=== PATIENT | male | born 1960 | race Caucasian/White ===

== ENCOUNTER 2017-02-10 16:45 | Inpatient (IN) | payer OTHER ==
[~2017-02-10] VITALS: Ht 200.7 cm; Wt 141.9 kg
[2017-02-10] MEDS ORDERED: SODIUM CHLORIDE 0.9% 1,000 ML IVB ONE (17:17)
[2017-02-10 17:45] LABS: Basophils # (auto) 0.1 uL; Basophils % (auto) 1.2 % (0.0-2.0); Eosinophils # (auto) 0.2 uL; Eosinophils % (auto) 1.7 % (0.0-7.0); Hematocrit 46.6 % (41.0-53.0); Hemoglobin 16.5 g/dL (13.5-17.5); Lymphocytes # (auto) 2.1 uL; Lymphocytes % (auto) 21.9 % (10.0-50.0); Mean Corpuscular Hemoglobin 30.9 pg (28.0-32.0); Mean Corpuscular Hgb Conc. 35.3 g/dL (32.0-36.0); Mean Corpuscular Volume 87.6 fL (80.0-100.0); Mean Platelet Volume 9.4 fL (6.9-10.8); Monocytes % (auto) 10.4 % (0.0-12.0); Neutrophils # (auto) 6.2 uL; Neutrophils % (auto) 64.8 % (37.0-80.0); Nucleated Red Blood Cells % 0.1 %; Platelet Count (auto) 210 10^3/uL (140-450); Red Cell Distribution Width 13.9 % (11.8-14.3); White Blood Cell 9.6 10^3/uL (4.4-10.8)
[2017-02-10 17:47] LABS: Albumin 3.6 g/dL (3.4-5.0); BUN/Creatinine Ratio 14.4; Calcium 8.9 mg/dL (8.5-10.1); Magnesium 2.6 mg/dL (1.6-2.6); Potassium 3.7 mmol/L (3.5-5.1)
[2017-02-10 17:52] LABS: Bilirubin, Total 0.3 mg/dL (0.2-1.0); Total Protein 6.8 g/dL (6.4-8.2)
[2017-02-10 17:59] LABS: INR 0.98 (0.9-1.15); Partial Thromboplastin Time 30.6 sec (22.64-33.71); Prothrombin Time 10.7 sec (9.37-12.3)
[2017-02-10 18:17] LABS: B-Type Natriuretic Peptide 188.95 pg/mL (0-100)
[2017-02-10 19:08] LABS: Temperature: 22.3 C (20.0-25.0)
[2017-02-10] MEDS ORDERED: ASPirin-EC 81 mg tab PO ONE (19:45)
[2017-02-10 20:14] LABS: Urine RBC None Seen /hpf (0 - 3)
[2017-02-10] MEDS ORDERED: DILTIAZEM HCL 25 MG/5 ML VIAL IV ONE (20:15)
[2017-02-10] MEDS ORDERED: SODIUM CHLORIDE 0.9% 1,000 ML IV ONE (20:15)
[2017-02-10] MEDS ORDERED: MORPHINE SULF INJ 2 MG/ML SYRINGE 1ML IV PRN (20:30)
[2017-02-10] MEDS ORDERED: NITROGLYCERIN 0.4 MG SL TAB SL PRN (20:30)
[2017-02-10] MEDS ORDERED: METOPROLOL TARTRATE 50 MG TAB PO ONE (20:30)
[2017-02-10 21:08] LABS: Urine Bilirubin Negative (Negative); Urine Blood Negative /uL (Negative); Urine Color Yellow (Yellow); Urine Glucose Normal (Normal); Urine Ketone Negative (Negative); Urine Mucus FEW (None Seen); Urine Nitrite Negative (Negative); Urine Urobilinogen Normal (Negative); Urine pH 5.5 (5.0-8.0)
[2017-02-10 21:45] VITALS: BP 109/65
[2017-02-10] MEDS ORDERED: METOPROLOL TARTRATE 50 MG TAB PO SCH (22:00)
[2017-02-10] MEDS: ATORVASTATIN 20 MG TAB PO SCH (22:20)
[2017-02-10] MEDS: ENOXAPARIN SOD 150 MG/1 ML SYRINGE SC SCH (22:20)
[2017-02-10] MEDS ORDERED: ASP81EC PO (23:30)
[2017-02-10] MEDS ORDERED: LISI10TA6 PO (23:30)
[2017-02-11 05:00] VITALS: BP 118/81
[2017-02-11 06:08] LABS: Basophils # (auto) 0.1 uL; Basophils % (auto) 0.8 % (0.0-2.0); CONDITION Y; Eosinophils # (auto) 0.1 uL; Eosinophils % (auto) 1.9 % (0.0-7.0); Hematocrit 43.3 % (41.0-53.0); Hemoglobin 14.7 g/dL (13.5-17.5); Lymphocytes # (auto) 2.3 uL; Lymphocytes % (auto) 31.6 % (10.0-50.0); Mean Corpuscular Hemoglobin 30.1 pg (28.0-32.0); Mean Corpuscular Hgb Conc. 33.9 g/dL (32.0-36.0); Mean Corpuscular Volume 88.8 fL (80.0-100.0); Mean Platelet Volume 9.5 fL (6.9-10.8); Monocytes # (auto) 0.7 uL; Monocytes % (auto) 9.3 % (0.0-12.0); Neutrophils % (auto) 56.4 % (37.0-80.0); Platelet Count (auto) 221 10^3/uL (140-450); Red Cell Distribution Width 14.2 % (11.8-14.3); White Blood Cell 7.2 10^3/uL (4.4-10.8)
[2017-02-11 06:30] LABS: BUN/Creatinine Ratio 13.8; Calcium 8.3 mg/dL (8.5-10.1)
[2017-02-11] MEDS: ENOXAPARIN SOD 150 MG/1 ML SYRINGE SC SCH (09:19)
[2017-02-11] MEDS: ASPirin 81 mg TAB PO SCH (10:00)
[2017-02-11] MEDS: SOTALOL HCL 80 MG TAB PO SCH ×2 (10:00→22:39)
[2017-02-11 10:41] VITALS: BP 136/90
[2017-02-11 12:19] VITALS: BP 139/82
[2017-02-11 17:00] VITALS: BP 123/73
[2017-02-11 21:30] VITALS: BP 133/71
[2017-02-11] MEDS: APIXABAN 5 MG TAB PO SCH (22:39)
[2017-02-11] MEDS: ATORVASTATIN 20 MG TAB PO SCH (22:39)
[2017-02-12 05:03] VITALS: BP 117/88
[2017-02-12 09:00] VITALS: BP 138/85
[2017-02-12] MEDS: SOTALOL HCL 80 MG TAB PO SCH ×2 (09:22→22:00)
[2017-02-12] MEDS: APIXABAN 5 MG TAB PO SCH ×2 (09:22→22:00)
[2017-02-12] MEDS: ASPirin 81 mg TAB PO SCH (09:22)
[2017-02-12 13:00] VITALS: BP_SYST 117; BP_SYST 147; BP_DIAS 70; BP_DIAS 95
[2017-02-12] MEDS ORDERED: fentaNYL CITRATE 100 MCG/2 ML VL IV ONE (13:15)
[2017-02-12] MEDS ORDERED: LIDOCAINE VISCOUS 2% 15ML UD PO ONE (13:15)
[2017-02-12] MEDS ORDERED: MIDAZOLAM HCL 1MG/1ML-2 ML VIAL ONE (13:15)
[2017-02-12] MEDS ORDERED: MIDAZOLAM HCL 5 MG/ML-1ML VIAL IV ONE (13:15)
[2017-02-12] MEDS ORDERED: BENZOCAINE (DENTAL) 20 % SPRAY 60ML MT ONE ×2 (13:33→13:45)
[2017-02-12 17:00] VITALS: BP 123/86
[2017-02-12] MEDS: ATORVASTATIN 20 MG TAB PO SCH (21:59)
[2017-02-12 22:00] VITALS: BP 145/93
[2017-02-13 05:03] VITALS: BP 117/80
[2017-02-13] MEDS ORDERED: ADENOSINE 119 MG in GIVE UN-DILUTED 0 ML IV ONE (08:30)
[2017-02-13 09:26] VITALS: BP 134/83
[2017-02-13] MEDS: APIXABAN 5 MG TAB PO SCH (11:44)
[2017-02-13] MEDS: ASPirin 81 mg TAB PO SCH (11:45)
[2017-02-13] MEDS: SOTALOL HCL 80 MG TAB PO SCH (11:45)
[2017-02-13 12:45] VITALS: BP 134/83
[2017-02-13 12:50] VITALS: BP 125/84
[2017-02-13 16:30] VITALS: BP 120/79
== END 2017-02-13 20:50 | disposition home or self-care (01) | DRG 310 ==
LOC: ER 16:45 → TELE 16:46 → TELE-CENTR 21:36
PROVIDERS: ADMIT Internal Medicine; ATTEND Internal Medicine
PROC: B24BZZ4 Ultrasonography of Heart with Aorta, Transesophageal (ICD-10-PCS; principal; 2017-02-12)
PROC: 5A2204Z Restoration of Cardiac Rhythm, Single (ICD-10-PCS; 2017-02-12)
DX: I48.0 Paroxysmal atrial fibrillation (principal); I11.9 Hypertensive heart disease without heart failure; E66.9 Obesity, unspecified; E78.5 Hyperlipidemia, unspecified; Z82.49 Family history of ischemic heart disease and other diseases of the circulatory system; Z68.35 Body mass index [BMI] 35.0-35.9, adult; Z88.8 Allergy status to other drugs, medicaments and biological substances
CPT/HCPCS: 36415; 71010; 80048; 80053; 81001; 83735; 83880; 84443; 84484; 85025; 85379; 85610; 85730; 93005; 93017; 93306; 93312; 94761; 96360; 96361; 99152; 99153; J0153; J2250

== ENCOUNTER 2024-03-15 05:07 | Inpatient (IN) | payer OTHER ==
[~2024-03-15] VITALS: Ht 200.7 cm; Wt 159.0 kg
[~2024-03-15 05:07] MED LIST: ASPI-394 PO; LISI10TA34 PO
[2024-03-15 05:30] VITALS: PULSE 149; RESP 16; O2SAT 94
[2024-03-15] MEDS: dilTIAZem 25 MG/5 ML VIAL IV ONE (05:48)
[2024-03-15] MEDS: dilTIAZem 125mg/125ml BAG KIT 125 ML IV ONE (06:01)
[2024-03-15 07:28] LABS: Chloride 110 mmol/L (98-107); Potassium 4.1 mmol/L (3.5-5.1); Sodium 140 mmol/L (136-145)
[2024-03-15 07:29] LABS: Anion Gap 10 (5-15); Calcium 9.1 mg/dL (8.7-10.4); Carbon Dioxide 20 mmol/L (20-31)
[2024-03-15 07:30] VITALS: PULSE 106; RESP 16; O2SAT 96
[2024-03-15 07:32] LABS: Urine Bacteria None Seen /hpf (None Seen)
[2024-03-15 07:34] LABS: BUN/Creatinine Ratio 14.8 (10.0-20.0); Blood Urea Nitrogen 13 mg/dL (9-23); Glucose 103 mg/dL (74-106)
[2024-03-15 07:45] LABS: Basophils # (auto) 0.1 10 ^3/uL (0-0.2); Basophils % (auto) 1.2 % (0.0-2.0); Eosinophils # (auto) 0.2 10 ^3/uL (0-0.8); Eosinophils % (auto) 2.8 % (0.0-7.0); Hematocrit 45.9 % (41.0-53.0); Lymphocytes # (auto) 1.3 10 ^3/uL (0.4-5.4); Lymphocytes % (auto) 16.2 % (10.0-50.0); Mean Corpuscular Hemoglobin 30.2 pg (28.0-32.0); Mean Corpuscular Hgb Conc. 34.8 g/dL (32.0-36.0); Monocytes # (auto) 0.8 10 ^3/uL (0-1.3); Neutrophils # (auto) 5.8 10 ^3/uL (1.6-8.6); Neutrophils % (auto) 69.8 % (37.0-80.0); Platelet Count (auto) 189 10^3/uL (140-450); Red Blood Cells 5.28 10^6/uL (4.5-5.90); Red Cell Distribution Width 15.1 % (11.8-14.3); White Blood Cell 8.3 10^3/uL (4.4-10.8)
[2024-03-15 07:52] LABS: Urine Blood Negative /uL (Negative); Urine Clarity Clear (Clear); Urine Color Colorless (Yellow); Urine Protein, UAD Negative (Negative); Urine Specific Gravity 1.005 (1.001-1.035); Urine Urobilinogen Normal (Negative); Urine WBC <1 /hpf (0 - 3)
[2024-03-15 08:00] LABS: Amphetamine Screen, Urine Neg (NEGATIVE); Barbiturate Scree,Urine Neg (NEGATIVE); Benzodiazephine Screen, Urine Neg (NEGATIVE); Cocaine Screen, Urine Neg (NEGATIVE)
[2024-03-15 08:01] LABS: Cannabinoid Screen, Urine Neg (NEGATIVE); Opiate Scree,Urine Neg (NEGATIVE); Phencyclidine Screen, Urine Neg (NEGATIVE)
[2024-03-15] MEDS ORDERED: MORPHINE SULFATE INJ 2 MG/ml SYRG IV PRN (09:15)
[2024-03-15] MEDS ORDERED: ONDANSETRON HCL 4 MG/2 ML VIAL IV PRN (09:15)
[2024-03-15] MEDS ORDERED: HYDROmorphone HCL 2 MG/ML VL/or syr IV PRN (09:15)
[2024-03-15] MEDS ORDERED: HYDROcodone-ACET 5/325MG TAB PO PRN (09:15)
[2024-03-15] MEDS ORDERED: ACETAMINOPHEN 325 MG TAB PO PRN (09:15)
[2024-03-15] MEDS ORDERED: NITROGLYCERIN 0.4 MG SL TAB SL PRN (09:15)
[2024-03-15] MEDS: ENOXAPARIN SOD 150 MG/1 ML SYRINGE SC SCH (10:34)
[2024-03-15] MEDS: SODIUM CHLOR 0.9% PF (SALINE LOCK) 10ML VIAL/SYR IV SCH (14:25)
[2024-03-15] MEDS: MAGNESIUM SULFATE 1GM/100ML 100 ML IV ONE (18:15)
[2024-03-15 19:05] LABS: Magnesium 2.1 mg/dL (1.6-2.6)
[2024-03-15] MEDS: FUROSEMIDE 40 MG/4 ML VIAL IV ONE (19:05)
[2024-03-15] MEDS: AMIODARONE BOLUS KIT 100 ML IV ONE (19:58)
[2024-03-15] MEDS: AMIODARONE 450mg/250ml AE 250 ML IV SCH (20:23)
[2024-03-15] MEDS: METOPROLOL TARTRATE 25 MG TAB PO SCH (22:08)
[2024-03-16] VITALS (8 sets, daily range): BP systolic 103–162; BP diastolic 55–90; PULSE 72–104; RESP 16–20; TEMP 97.7–99.7; O2SAT 92–100
[2024-03-16] MEDS ORDERED: SIMV20TA20 PO (00:27)
[2024-03-16] MEDS ORDERED: MIRA25TA PO (00:27)
[2024-03-16] MEDS ORDERED: SOTA80TA PO (00:27)
[2024-03-16] MEDS ORDERED: TADA10TA PO (00:27)
[2024-03-16] MEDS: AMIODARONE 450mg/250ml AE 250 ML IV SCH (03:09)
[2024-03-16 08:56] LABS: Basophils # (auto) 0.1 10 ^3/uL (0-0.2); Basophils % (auto) 0.9 % (0.0-2.0); Eosinophils # (auto) 0.2 10 ^3/uL (0-0.8); Eosinophils % (auto) 2.2 % (0.0-7.0); Hematocrit 46.5 % (41.0-53.0); Hemoglobin 16.3 g/dL (13.5-17.5); Lymphocytes # (auto) 1.5 10 ^3/uL (0.4-5.4); Lymphocytes % (auto) 20.9 % (10.0-50.0); Mean Corpuscular Hemoglobin 30.8 pg (28.0-32.0); Mean Corpuscular Hgb Conc. 35.1 g/dL (32.0-36.0); Mean Corpuscular Volume 87.5 fL (80.0-100.0); Monocytes # (auto) 0.8 10 ^3/uL (0-1.3); Monocytes % (auto) 10.5 % (0.0-12.0); Neutrophils # (auto) 4.8 10 ^3/uL (1.6-8.6); Neutrophils % (auto) 65.5 % (37.0-80.0); Nucleated Red Blood Cells % 0.1 %; Platelet Count (auto) 191 10^3/uL (140-450); Red Blood Cells 5.31 10^6/uL (4.5-5.90); Red Cell Distribution Width 15.4 % (11.8-14.3); White Blood Cell 7.3 10^3/uL (4.4-10.8)
[2024-03-16] MEDS: FUROSEMIDE 20 MG/2 ML VIAL IV SCH (08:58)
[2024-03-16 09:16] LABS: Alanine Aminotransferase 21 U/L (7-40); Alkaline Phosphatase 111 U/L (46-116); Anion Gap 6 (5-15); Aspartate Aminotransferase 17 U/L (13-40); BUN/Creatinine Ratio 11.9 (10.0-20.0); Blood Urea Nitrogen 12 mg/dL (9-23); Calcium 9.4 mg/dL (8.7-10.4); Carbon Dioxide 26 mmol/L (20-31); Chloride 108 mmol/L (98-107); Glucose 100 mg/dL (74-106); Potassium 3.8 mmol/L (3.5-5.1); Sodium 140 mmol/L (136-145)
[2024-03-16 09:17] LABS: Bilirubin, Total 0.8 mg/dL (0.2-1.0); Total Protein 6.3 g/dL (5.7-8.2)
[2024-03-16] MEDS: AMIODARONE HCL 200 MG TAB PO ONE (13:22)
[2024-03-16] MEDS ORDERED: ATOR20TA50 PO (13:50)
[2024-03-16] MEDS ORDERED: APIX5TAB PO (16:12)
[2024-03-16] MEDS ORDERED: TRIA37.587 PO (16:12)
[2024-03-16] MEDS ORDERED: ATORVASTATIN 20 MG TAB PO SCH (22:00)
[2024-03-16] MEDS ORDERED: AMIODARONE HCL 200 MG TAB PO SCH (22:00)
== END 2024-03-16 18:00 | disposition home or self-care (01) | DRG 291 ==
LOC: ER 05:07 → EDBD 05:07 → TELE 09:04 → TELE-EAST 23:22
PROVIDERS: ADMIT Nurse Practitioner Acute Care; ATTEND Internal Medicine
DX: I11.0 Hypertensive heart disease with heart failure (principal); I50.33 Acute on chronic diastolic (congestive) heart failure; D68.69 Other thrombophilia; E78.5 Hyperlipidemia, unspecified; I48.0 Paroxysmal atrial fibrillation; E66.01 Morbid (severe) obesity due to excess calories; Z79.01 Long term (current) use of anticoagulants; Z83.3 Family history of diabetes mellitus; Z82.49 Family history of ischemic heart disease and other diseases of the circulatory system; Z68.39 Body mass index [BMI] 39.0-39.9, adult; Z79.899 Other long term (current) drug therapy
CPT/HCPCS: 36415; 71045; 80048; 80053; 80061; 80307; 81001; 82962; 83036; 83735; 83880; 84443; 84484; 85025; 93005; 93306; 99291; G0378